=== PATIENT | female | born 1985 | race Two or more races ===

== ENCOUNTER 2016-11-05 10:30 | Observation (INO) | payer MEDICAID | END 2016-11-05 12:10 | disposition home or self-care (01) | DRG 566 | LOC: LDRP 10:30 | PROVIDERS: ADMIT Specialist; ATTEND Specialist | DX: O24.419 Gestational diabetes mellitus in pregnancy, unspecified control (principal); O26.893 Other specified pregnancy related conditions, third trimester; O21.2 Late vomiting of pregnancy; R10.9 Unspecified abdominal pain; Z3A.00 Weeks of gestation of pregnancy not specified | CPT/HCPCS: 59025; 76818; 81002; G0378 ==

== ENCOUNTER 2016-11-08 12:10 | Observation (INO) | payer MEDICAID | END 2016-11-08 13:35 | disposition home or self-care (01) | DRG 566 | LOC: LDRP 12:10 | PROVIDERS: ADMIT Specialist; ATTEND Specialist | DX: O24.419 Gestational diabetes mellitus in pregnancy, unspecified control (principal); O62.9 Abnormality of forces of labor, unspecified; Z3A.30 30 weeks gestation of pregnancy | CPT/HCPCS: 59025; 76818; 81002; 82962; G0378 ==

== ENCOUNTER 2016-11-11 10:00 | Observation (INO) | payer MEDICAID ==
[~2016-11-11] VITALS: Ht 149.9 cm; Wt 90.3 kg
[2016-11-11] MEDS ORDERED: BETAMETHASONE ACET (6MG/ML) 5ML VIAL ONE (10:53)
[2016-11-11] MEDS ORDERED: BETAMETHASONE ACET (6MG/ML) 5ML VIAL IM ONE (11:00)
== END 2016-11-11 11:10 | disposition home or self-care (01) | DRG 566 ==
LOC: LDRP 10:00
PROVIDERS: ADMIT Obstetrics & Gynecology; ATTEND Obstetrics & Gynecology
DX: O24.419 Gestational diabetes mellitus in pregnancy, unspecified control (principal)
CPT/HCPCS: 59025; 76818; 81002; 82962; 96372; G0378; J0702

== ENCOUNTER 2016-11-12 11:00 | Observation (INO) | payer MEDICAID ==
[~2016-11-12] VITALS: Ht 30.5 cm; Wt 0.5 kg
[2016-11-12] MEDS ORDERED: BETAMETHASONE ACET (6MG/ML) 5ML VIAL IM ONE (11:45)
== END 2016-11-12 13:03 | disposition home or self-care (01) | DRG 566 ==
LOC: LDRP 11:00
PROVIDERS: ADMIT Specialist; ATTEND Specialist
DX: O24.419 Gestational diabetes mellitus in pregnancy, unspecified control (principal); Z3A.31 31 weeks gestation of pregnancy
CPT/HCPCS: 59025; 81002; 82948; 82962; G0378; 96372

== ENCOUNTER 2016-11-14 10:00 | Observation (INO) | payer MEDICAID | END 2016-11-14 13:30 | disposition home or self-care (01) | DRG 566 | LOC: LDRP 10:00 | PROVIDERS: ADMIT Specialist; ATTEND Specialist | DX: O24.410 Gestational diabetes mellitus in pregnancy, diet controlled (principal); O40.3XX0 Polyhydramnios, third trimester, not applicable or unspecified; Z3A.31 31 weeks gestation of pregnancy | CPT/HCPCS: 59025; 76818; 81002; 82962; G0378 ==

== ENCOUNTER 2016-11-18 10:05 | Observation (INO) | payer MEDICAID ==
[2016-11-18] MEDS ORDERED: PREN-153 OR (11:12)
[2016-11-18] MEDS ORDERED: GLYB5TAB8 PO (11:12)
[2016-11-19] MEDS ORDERED: NIF10C GT (11:05)
== END 2016-11-18 11:35 | disposition home or self-care (01) | DRG 566 ==
LOC: LDRP 10:05
PROVIDERS: ADMIT Obstetrics & Gynecology; ATTEND Obstetrics & Gynecology
DX: O62.9 Abnormality of forces of labor, unspecified (principal); O24.419 Gestational diabetes mellitus in pregnancy, unspecified control; Z3A.32 32 weeks gestation of pregnancy
CPT/HCPCS: 59025; 76818; 81002; 82962; G0378

== ENCOUNTER 2016-11-19 08:10 | Observation (INO) | payer MEDICAID ==
[~2016-11-19 08:10] MED LIST: GLYB5TAB8 PO; PREN-153 OR
[2016-11-19] MEDS ORDERED: TERBUTALINE SULFATE 1 MG/ML 1ML VIAL SC ONE (08:45)
[2016-11-19] MEDS: TERBUTALINE SULFATE 1 MG/ML 1ML VIAL SC SCH ×2 (09:35→10:08)
[2016-11-19] MEDS ORDERED: NIF10C GT (11:05)
== END 2016-11-19 11:00 | disposition home or self-care (01) | DRG 566 ==
LOC: LDRP 08:10
PROVIDERS: ADMIT Obstetrics & Gynecology; ATTEND Obstetrics & Gynecology
DX: O62.9 Abnormality of forces of labor, unspecified (principal); O24.419 Gestational diabetes mellitus in pregnancy, unspecified control; Z3A.32 32 weeks gestation of pregnancy
CPT/HCPCS: 59025; 81002; 82962; 96372; G0378; J3105

== ENCOUNTER 2016-11-20 20:11 | Observation (INO) | payer MEDICAID ==
[~2016-11-20 20:11] MED LIST changes: +NIF10C GT
== END 2016-11-20 22:20 | disposition home or self-care (01) | DRG 566 ==
LOC: LDRP 20:11
PROVIDERS: ADMIT Specialist; ATTEND Specialist
DX: O62.9 Abnormality of forces of labor, unspecified (principal); O24.419 Gestational diabetes mellitus in pregnancy, unspecified control; O40.3XX0 Polyhydramnios, third trimester, not applicable or unspecified; Z3A.32 32 weeks gestation of pregnancy
CPT/HCPCS: 59025; 76817; 76818; 81002; G0378

== ENCOUNTER 2016-11-24 20:13 | Observation (INO) | payer MEDICAID | END 2016-11-24 21:38 | disposition home or self-care (01) | DRG 566 | LOC: LDRP 20:13 | PROVIDERS: ADMIT Specialist; ATTEND Specialist | DX: O24.419 Gestational diabetes mellitus in pregnancy, unspecified control (principal); Z3A.00 Weeks of gestation of pregnancy not specified | CPT/HCPCS: 59025; 76818; 81002; G0378 ==

== ENCOUNTER 2016-11-28 20:58 | Observation (INO) | payer MEDICAID ==
[2016-11-29 00:18] LABS: Urine Bilirubin Negative (Negative); Urine Blood 1+ /uL (Negative); Urine Color Yellow (Yellow); Urine Glucose Normal (Normal); Urine Ketone Negative (Negative); Urine Nitrite Negative (Negative); Urine RBC 15 /hpf (0 - 4); Urine Urobilinogen Normal (Negative)
[2016-11-29 00:19] LABS: Urine Squamous Epithelial Cell FEW /hpf (<5)
== END 2016-11-28 23:23 | disposition home or self-care (01) | DRG 566 ==
LOC: LDRP 20:58
PROVIDERS: ADMIT Specialist; ATTEND Specialist
DX: O24.419 Gestational diabetes mellitus in pregnancy, unspecified control (principal); O23.43 Unspecified infection of urinary tract in pregnancy, third trimester; O40.3XX0 Polyhydramnios, third trimester, not applicable or unspecified; Z3A.33 33 weeks gestation of pregnancy
CPT/HCPCS: 59025; 76817; 76818; 81001; 81002; 87086; G0378

== ENCOUNTER 2016-12-01 10:30 | Observation (INO) | payer MEDICAID | END 2016-12-01 12:45 | disposition home or self-care (01) | DRG 566 | LOC: LDRP 10:30 | PROVIDERS: ADMIT Obstetrics & Gynecology; ATTEND Obstetrics & Gynecology | DX: O24.419 Gestational diabetes mellitus in pregnancy, unspecified control (principal); Z3A.34 34 weeks gestation of pregnancy | CPT/HCPCS: 59025; 76818; 81002; 82962; G0378 ==

== ENCOUNTER 2016-12-04 14:20 | Observation (INO) | payer MEDICAID ==
[2016-12-04] MEDS ORDERED: GLIP-115 PO (15:00)
[2016-12-04] MEDS ORDERED: NIF10C GT (15:00)
[2016-12-04] MEDS ORDERED: PREN-153 OR (15:00)
== END 2016-12-04 15:15 | disposition home or self-care (01) | DRG 566 ==
LOC: LDRP 14:20
PROVIDERS: ADMIT Specialist; ATTEND Specialist
DX: O24.419 Gestational diabetes mellitus in pregnancy, unspecified control (principal); Z3A.34 34 weeks gestation of pregnancy
CPT/HCPCS: 59025; 76818; 81002; 82962; G0378

== ENCOUNTER 2016-12-07 12:10 | Observation (INO) | payer MEDICAID ==
[~2016-12-07 12:10] MED LIST changes: +GLIP-115 PO
== END 2016-12-07 13:20 | disposition home or self-care (01) | DRG 566 ==
LOC: LDRP 12:10
PROVIDERS: ADMIT Specialist; ATTEND Specialist
DX: O24.419 Gestational diabetes mellitus in pregnancy, unspecified control (principal); Z3A.35 35 weeks gestation of pregnancy
CPT/HCPCS: 59025; 76818; 81002; 82962; G0378

== ENCOUNTER 2016-12-10 12:20 | Observation (INO) | payer MEDICAID | END 2016-12-10 13:35 | disposition home or self-care (01) | DRG 566 | LOC: LDRP 12:20 | PROVIDERS: ADMIT Specialist; ATTEND Specialist | DX: O24.419 Gestational diabetes mellitus in pregnancy, unspecified control (principal); O40.3XX0 Polyhydramnios, third trimester, not applicable or unspecified; Z3A.35 35 weeks gestation of pregnancy | CPT/HCPCS: 59025; 76818; 81002; G0378 ==

== ENCOUNTER 2016-12-13 14:15 | Observation (INO) | payer MEDICAID | END 2016-12-13 15:35 | disposition home or self-care (01) | DRG 566 | LOC: LDRP 14:15 | PROVIDERS: ADMIT Specialist; ATTEND Specialist | DX: O24.419 Gestational diabetes mellitus in pregnancy, unspecified control (principal); Z3A.00 Weeks of gestation of pregnancy not specified | CPT/HCPCS: 59025; 76818; 81002; 82948; 82962; G0378 ==

== ENCOUNTER 2016-12-17 12:08 | Observation (INO) | payer MEDICAID | END 2016-12-17 13:35 | disposition home or self-care (01) | DRG 566 | LOC: LDRP 12:08 | PROVIDERS: ADMIT Obstetrics & Gynecology; ATTEND Obstetrics & Gynecology | DX: O24.419 Gestational diabetes mellitus in pregnancy, unspecified control (principal); Z3A.36 36 weeks gestation of pregnancy | CPT/HCPCS: 59025; 76818; 81002; G0378 ==

== ENCOUNTER 2016-12-20 11:55 | Observation (INO) | payer MEDICAID ==
[2016-12-20 13:55] LABS: Basophils # (auto) 0 uL; Basophils % (auto) 0.4 % (0.0-2.0); CONDITION Y; Eosinophils # (auto) 0.1 uL; Eosinophils % (auto) 0.7 % (0.0-7.0); Hematocrit 35.9 % (36.0-46.0); Lymphocytes # (auto) 1.5 uL; Lymphocytes % (auto) 18.6 % (10.0-50.0); Mean Corpuscular Hemoglobin 28.2 pg (28.0-32.0); Mean Corpuscular Hgb Conc. 33.5 g/dL (32.0-36.0); Mean Corpuscular Volume 84.2 fL (80.0-100.0); Mean Platelet Volume 9.7 fL (7.4-10.4); Monocytes # (auto) 0.5 uL; Monocytes % (auto) 5.7 % (0.0-12.0); Neutrophils % (auto) 74.6 % (37.0-80.0); Platelet Count (auto) 248 10^3/uL (140-450); Red Cell Distribution Width 13.5 % (11.6-16.0); White Blood Cell 8.1 10^3/uL (4.4-10.8)
[2016-12-20 14:40] LABS: INR 0.9 (0.9-1.15); Partial Thromboplastin Time 27.8 sec (22.64-33.71); Prothrombin Time 9.8 sec (9.37-12.3)
[2016-12-20 15:08] LABS: Albumin 2.5 g/dL (3.4-5.0); BUN/Creatinine Ratio 16.9; Bilirubin, Total 0.2 mg/dL (0.2-1.0); Calcium 8.8 mg/dL (8.5-10.1); Potassium 4.1 mmol/L (3.5-5.1); Total Protein 6.6 g/dL (6.4-8.2)
== END 2016-12-20 15:10 | disposition home or self-care (01) | DRG 566 ==
LOC: LDRP 11:55
PROVIDERS: ADMIT Specialist; ATTEND Specialist
DX: O24.419 Gestational diabetes mellitus in pregnancy, unspecified control (principal); Z3A.36 36 weeks gestation of pregnancy
CPT/HCPCS: 36415; 59025; 76815; 76818; 80053; 81002; 82962; 84550; 85025; 85610; 85730; 86592; G0378

== ENCOUNTER → 2016-12-21 | Outpatient (CLI) | payer MEDICAID | END | disposition home or self-care (01) | LOC: LAB 12:06 | PROVIDERS: ATTEND Obstetrics & Gynecology | DX: Z34.80 Encounter for supervision of other normal pregnancy, unspecified trimester (principal) | CPT/HCPCS: 36415; 83036 ==

== ENCOUNTER 2016-12-24 12:15 | Observation (INO) | payer MEDICAID | END 2016-12-24 13:40 | disposition home or self-care (01) | DRG 566 | LOC: LDRP 12:15 | PROVIDERS: ADMIT Specialist; ATTEND Specialist | DX: O24.419 Gestational diabetes mellitus in pregnancy, unspecified control (principal); O60.03 Preterm labor without delivery, third trimester; O40.3XX0 Polyhydramnios, third trimester, not applicable or unspecified; O62.9 Abnormality of forces of labor, unspecified; Z3A.37 37 weeks gestation of pregnancy | CPT/HCPCS: 59025; 76818; 81002; 82962; G0378 ==

== ENCOUNTER 2016-12-27 12:10 | Observation (INO) | payer MEDICAID ==
[2016-12-27] MEDS ORDERED: D5W/LACTATED RINGERS 1,000 ML IV ONE ×2 (15:00)
== END 2016-12-27 17:25 | disposition home or self-care (01) | DRG 566 ==
LOC: LDRP 12:10
PROVIDERS: ADMIT Obstetrics & Gynecology; ATTEND Obstetrics & Gynecology
DX: O24.419 Gestational diabetes mellitus in pregnancy, unspecified control (principal); O40.3XX0 Polyhydramnios, third trimester, not applicable or unspecified; Z3A.37 37 weeks gestation of pregnancy
CPT/HCPCS: 59025; 76815; 76818; 81002; 82948; 82962; G0378; 96361; 96365; 96366